=== PATIENT | male | born 1985 | race Hispanic/Latino ===

== ENCOUNTER 2021-06-01 09:43 | Emergency (ER) | payer MEDICAID, OTHER ==
[~2021-06-01] VITALS: Ht 165.1 cm; Wt 79.8 kg
[2021-06-01] MEDS ORDERED: 0.9%NACL 1000ML 1,000 ML IV ONE (10:18)
[2021-06-01 10:25] LABS: BASOPHILS % (AUTO) 0.6 % (0.0-5.0); EOSINOPHILS % (AUTO) 0.2 % (0.0-8.0); HEMATOCRIT 24.2 % (42-54); LYMPHOCYTES % (AUTO) 8.5 % (21.0-51.0); MEAN CORPUSCULAR HEMOGLOBIN 31.6 pg (27.0-33.0); MEAN CORPUSCULAR HGB CONC 33.1 g/dL (32.0-36.0); MEAN CORPUSCULAR VOLUME 95.7 fL (79-99); MONOCYTES % (AUTO) 8.2 % (3.0-13.0); NEUTROPHILS % (AUTO) 82.2 % (40.0-77.0); PLATELET COUNT (AUTO) 136 K/uL (130-400); RED BLOOD CELL COUNT(AUTO) 2.53 MIL/uL (4.50-6.20); RED CELL DISTRIBUTION WIDTH 13.2 % (11.0-15.5); WHITE BLOOD COUNT (AUTO) 8.7 K/uL (4.8-10.8)
[2021-06-01 10:30] LABS: APPEARANCE,URINE Clear (CLEAR); BILIRUBIN,URINE Negative (NEGATIVE); COLOR,URINE Yellow (YELLOW); GLUCOSE, URINE (UA) Negative (NEGATIVE); KETONES,URINE Negative (NEGATIVE); LEUKOCYTE ESTERASE ,URINE Negative (NEGATIVE); NITRATE,URINE Negative (NEGATIVE); OCCULT BLOOD,URINE Negative (NEGATIVE); PH,URINE 7.5 (5.0-8.0); PROTEIN,URINE Negative (NEGATIVE)
[2021-06-01] MEDS ORDERED: 0.9%NACL 1000ML 1,000 ML IV SCH (10:30)
[2021-06-01 10:35] LABS: CREATININE 0.7 mg/dL (0.5-1.5); POTASSIUM 3.1 mmol/L (3.5-5.1)
[2021-06-01 10:36] LABS: AMPHET/METH SCREEN,URINE NEGATIVE (NEGATIVE); BARBITURATE SCREEN, URINE NEGATIVE (NEGATIVE); BENZODIAZEPINES SCREEN,URINE NEGATIVE (NEGATIVE); CANNABINOID SCREEN,URINE NEGATIVE (NEGATIVE); COCAINE SCREEN,URINE NEGATIVE (NEGATIVE); OPIATE SCREEN,URINE NEGATIVE (NEGATIVE); PHENCYCLIDINE SCREEN,URINE NEGATIVE (NEGATIVE)
[2021-06-01 10:40] LABS: ALBUMIN 3.2 g/dL (3.5-5.0); BILIRUBIN,TOTAL 1.3 mg/dL (0.2-1.0); MAGNESIUM 1.4 mg/dL (1.80-2.40); PHOSPHORUS 2.3 mg/dL (2.5-4.9)
[2021-06-01] MEDS ORDERED: ACETAMINOPHEN 500 MG TABLET ONE (11:58)
[2021-06-01] MEDS ORDERED: ACETAMINOPHEN 500 MG TABLET PO ONE (12:00)
[2021-06-01 13:15] VITALS: BP 135/85
[2021-06-01] MEDS ORDERED: BACI3.5O22 OP (13:26)
[2021-06-01] MEDS ORDERED: SULF1TAB42 PO (13:26)
[2021-06-01] MEDS ORDERED: ACET-66 PO (13:27)
== END 2021-06-01 13:42 | disposition home or self-care (01) ==
LOC: EDH 09:43
DX: R56.9 Unspecified convulsions (principal); T81.49XA Infection following a procedure, other surgical site, initial encounter; I10 Essential (primary) hypertension; F31.9 Bipolar disorder, unspecified; Z98.890 Other specified postprocedural states
CPT/HCPCS: 36415; 70450; 71045; 80053; 80305; 81003; 82948; 83735; 84100; 84484; 85025; 93005; 96360; 96361; 99285; J7030